=== PATIENT | female | born 1945 | race Caucasian/White ===

== ENCOUNTER 2017-02-17 13:03 | Outpatient (CLI) | payer MEDICARE | END 2017-02-17 13:17 | LOC: D.MAMMO 13:03 | DX: Z12.31 Encounter for screening mammogram for malignant neoplasm of breast (principal) ==

== ENCOUNTER 2017-07-31 16:18 | Emergency (ER) | payer MEDICARE ==
[2017-07-31 20:17] LABS: BASOPHILS 0.4 % (0-2); EOSINOPHILS 4.1 % (0-7); HEMOGLOBIN 13.4 g/dL (12-16); IMMATURE GRANULOCYTES 0.1 % (0-5); LYMPHOCYTES 35.3 % (15-50); MCH 28.5 pg (26.0-34.0); MCHC 32.7 g/dL (31.0-37.0); MEAN PLATELET VOLUME 10.6 fL (7.4-10.4); MONOCYTES 5.9 % (2-11); NEUTROPHILS 54.2 % (40-80); PLATELET COUNT 289 10x3/uL (130-400); RBC 4.71 10x6/uL (4.00-5.40); RDW 13.2 % (11.5-14.5); WBC 6.9 10x3/uL (4.8-10.8)
[2017-07-31 20:31] LABS: ALBUMIN 3.7 g/dL (3.4-5.0); ALKALINE PHOSPHATASE 63 U/L (46-116); ALT (SGPT) 20 U/L (10-68); BILIRUBIN - TOTAL 0.22 mg/dL (0.2-1.3); CALC OSMOLALITY 285 mosm/kg (275-300); CALCIUM 9.5 mg/dL (8.5-10.1); CARBON DIOXIDE 29.9 mmol/L (21.0-32.0); CHLORIDE - SERUM 105 mmol/L (98-107); CREATININE - SERUM 0.8 mg/dL (0.6-1.3); GLUCOSE 122 mg/dL (74-106); POTASSIUM - SERUM 4.2 mmol/L (3.5-5.1); PROTEIN - SERUM 7.3 g/dL (6.4-8.2); SODIUM 142 mmol/L (136-145); UREA NITROGEN 17 mg/dL (7-18); eGFR NON AFRICAN AMERICAN 75 mL/min (90-120)
[2017-07-31 20:34] LABS: CREATINE KINASE 86 UL (21-215); TROPONIN-I < 0.017 ng/mL (0.000-0.060)
[2017-07-31 20:51] LABS: INR 0.95 (0.85-1.17); PROTIME 12.5 SECONDS (11.6-15.0)
== END 2017-07-31 20:47 | disposition home or self-care (01) ==
LOC: D.ER 16:18
PROVIDERS: Nurse Practitioner Family
DX: F07.81 Postconcussional syndrome (principal); W01.0XXA Fall on same level from slipping, tripping and stumbling without subsequent striking against object, initial encounter; Y93.E1 Activity, personal bathing and showering; Y92.022 Bathroom in mobile home as the place of occurrence of the external cause; I10 Essential (primary) hypertension; E11.9 Type 2 diabetes mellitus without complications

== ENCOUNTER → 2017-11-20 13:46 | Outpatient (CLI) | payer MEDICARE ==
--- NOTE | ~2017-11-20 | EC ---
PATIENT:PHYLLIS VAZQUEZ DATE OF SERVICE: 11/20/17 SEX: F MEDICAL RECORD: [id number] DATE OF : 45 LOCATION:[facility] AGE OF PATIENT: 71 ADMISSION DATE: 11/20/17 REFERRING PHYSICIAN: INTERPRETING PHYSICIAN: VASILE GORDON MD ECHOCARDIOGRAM REPORT ECHO CHARGES 4 ECHO COMPLETE CLINICAL DIAGNOSIS: CP/DYSPNEA/PALPITATIONS/HTN ECHOCARDIOGRAPHIC MEASUREMENTS (adult normal given) AC root (d.<3.7cm) 3.0 cm LV Septum d (<1.2 cm> 1.2 cm Valve Excursion 2.0 cm LV Septum (systole) 1.6 cm Left Atria (s.<4.0cm> 4.5 cm LVPW d(<1.2cm) 1.4 cm RV (d.<2.3cm) 2.1 cm LVPW (sytole) 1.9 cm LV diastole(<5.6CM) 4.4 cm MV E-F(>70mm/sec) cm LV systole 2.8 cm LVOT Diameter 1.6 cm MV exc.(>10mm) cm Est.ejection fraction (50-75%) % Pericardial Effusion N DOPPLER: LVIT cm/sec A 165 cm/sec E 111 cm/sec LA cm/sec RVSP 16.0 mmHg LVOT 109 cm/sec AOP1/2T m/s Asc. Ao 151 cm/sec RVOT 76.0 cm/sec RA cm/sec PA 98.0 cm/sec AV Gradient Peak 9.1 mmHg AV Mean 4.4 mmHg AV Area 1.8 cm MV Gradient Peak 11.0 mmHg MV Mean 3.6 mmHg MV Area cm COMMENTS: Screw Supervisor: Alondra GREGGOE Wood Piler: Tina Gordon TAPE# PACS DATE OF SERVICE: 11/20/2017 PROCEDURE: Transthoracic echocardiogram. FINDINGS: 1. Left ventricle shows mild left ventricular hypertrophy and flow characteristics consistent with diastolic dysfunction. 2. The mitral valve has mild mitral regurgitation. There is mitral annular calcification, but otherwise structurally normal. 3. The left atrium is moderately dilated. ECHOCARDIOGRAM REPORT [id number] PHYLLIS VAZQUEZ 4. The right ventricle is normal size, normal function. 5. The right atrium is mildly dilated. 6. Tricuspid valve is normal. 7. The right ventricular systolic pressures are normal. 8. The pericardium is normal. CONCLUSIONS: This is a relatively normal echocardiogram for the patient's age. There is some evidence of mild hypertensive heart disease. TRANSINT:[id number] Voice Confirmation ID: [id number] DOCUMENT ID: [id number] VASILE GORDON MD at 0755 CC: [id number] DICTATION DATE: 11/21/17 1011 RELAY OPERATOR: 11/21/17 1030 DEP CLI 11/20/17 [id number] [place] [id number]
== END | disposition home or self-care (01) ==
LOC: D.ECHO 13:30
DX: R07.9 Chest pain, unspecified (principal); R06.02 Shortness of breath; R00.2 Palpitations; I10 Essential (primary) hypertension